=== PATIENT | male | born 1995 | race Asian ===

== ENCOUNTER 2024-09-09 13:49 | Inpatient (IN) | payer OTHER ==
[~2024-09-09] VITALS: Ht 167.6 cm; Wt 82.7 kg
[2024-09-09] MEDS ORDERED: BUPR75TA5 PO (14:34)
[2024-09-09] MEDS ORDERED: SERT-141 PO (14:36)
[2024-09-09] MEDS ORDERED: HYDR50CA2 PO (14:37)
[2024-09-09] MEDS ORDERED: HOME MED LIST COMPLETE! XX SCH (15:05)
[2024-09-09 15:13] LABS: HEMATOCRIT 50.8 % (42.0-52.0); HEMOGLOBIN 17.2 g/dl (13.5-17.5); MEAN CORPUSCULAR HEMOGLOBIN 29.2 pg (27.0-33.0); MEAN CORPUSCULAR HGB CONC 33.9 g/dl (32.0-36.5); MEAN CORPUSCULAR VOLUME 86.2 fl (80.0-96.0); PLATELET COUNT, AUTOMATED 195 10^3/uL (150-450); RED BLOOD COUNT 5.89 10^6/uL (4.30-6.10); WHITE BLOOD COUNT 8.1 10^3/uL (4.0-10.0)
[2024-09-09 15:40] LABS: AMPHETAMINES LEVEL URINE NEGATIVE (NEGATIVE); BARBITURATES URINE NEGATIVE (NEGATIVE)
[2024-09-09 15:41] LABS: BENZODIAZEPINES URINE NEGATIVE (NEGATIVE); CANNABINOIDS URINE NEGATIVE (NEGATIVE); COCAINE METABOLITE URINE NEGATIVE (NEGATIVE); METHADONE URINE NEGATIVE (NEGATIVE); OPIATES URINE NEGATIVE (NEGATIVE); PHENCYCLIDINE URINE NEGATIVE (NEGATIVE)
[2024-09-09 15:43] LABS: ETHYL ALCOHOL (ETHANOL) < 0.003 % (0.000-0.010)
[2024-09-09 15:44] LABS: ALBUMIN 4.1 G/DL (3.2-5.2); ALKALINE PHOSPHATASE 98 U/L (40-129); ALT/SGPT 23 U/L (7.0-40); AST/SGOT 18 U/L (<34); BILIRUBIN,DIRECT 0.3 MG/DL (<0.4); BILIRUBIN,TOTAL 1.1 MG/DL (0.3-1.2); BLOOD UREA NITROGEN 18 MG/DL (9-23); CALCIUM LEVEL 9.8 MG/DL (8.5-10.1); CARBON DIOXIDE LEVEL 29 MMOL/L (20-31); CHLORIDE LEVEL 103 MMOL/L (98-107); CREATININE FOR GFR 0.94 MG/DL (0.70-1.30); GLOMERULAR FILTRATION RATE > 60.0 (>60); GLUCOSE, FASTING 88 MG/DL (60-100); POTASSIUM SERUM 4.3 MMOL/L (3.5-5.1); SALICYLATE LEVEL < 3.0 MG/DL (<30); SODIUM LEVEL 141 MMOL/L (136-145); TOTAL PROTEIN 7.7 G/DL (5.7-8.2)
[2024-09-09 15:47] LABS: THYROID STIMULATING HORMONE 1.005 uIU/ML (0.55-4.78)
[2024-09-09] MEDS ORDERED: IBUPROFEN 400MG TAB PO PRN (18:15)
[2024-09-09] MEDS ORDERED: MAALOX 30 ML SUSP *UDC PO PRN (18:15)
[2024-09-09] MEDS ORDERED: MOM 30ML SUSPENSION UDC PO PRN (18:15)
[2024-09-09] MEDS ORDERED: OLANZapine ORAL DISINTEGRATING TAB 5MG PO PRN (18:15)
[2024-09-09] MEDS: SERTRALINE HCL 50 MG TAB PO SCH (21:00)
[2024-09-09 21:32] VITALS: BP 134/88; TEMP 97.9; O2SAT 100
[2024-09-10 06:52] VITALS: BP 143/97; TEMP 98; O2SAT 100
[2024-09-10] MEDS: buPROPion 75 MG TAB PO SCH (09:01)
[2024-09-10 15:58] VITALS: BP 120/69; TEMP 99.3; O2SAT 100
[2024-09-10] MEDS: traZODone 50 MG TAB PO PRN (22:05)
[2024-09-11 06:46] VITALS: BP 135/71; TEMP 97.8; O2SAT 98
[2024-09-11 14:40] VITALS: BP 151/82; TEMP 97.5; O2SAT 98
[2024-09-11] MEDS: SERTRALINE HCL 50 MG TAB PO SCH (20:55)
[2024-09-12 06:23] VITALS: BP 141/96; TEMP 97.4; O2SAT 98
[2024-09-12 16:03] VITALS: BP 130/81; TEMP 98.4; O2SAT 96
[2024-09-12] MEDS: hydrOXYzine 50 MG TAB PO PRN (20:38)
[2024-09-13 06:27] VITALS: BP 138/68; TEMP 97.4; O2SAT 97
[2024-09-13] MEDS: PILL CUTTER 1 EACH XX PRN (08:25)
[2024-09-13 15:23] VITALS: BP 121/79; TEMP 98.6; O2SAT 97
[2024-09-14 06:44] VITALS: BP 126/80; TEMP 97.2; O2SAT 100
[2024-09-14 16:09] VITALS: BP 140/68; TEMP 97.4; O2SAT 97
[2024-09-15 06:30] VITALS: BP 128/73; TEMP 97.5; O2SAT 100
[2024-09-15 16:46] VITALS: BP 120/71; TEMP 98.3; O2SAT 95
[2024-09-16 06:29] VITALS: BP 122/78; TEMP 97; O2SAT 96
[2024-09-16] MEDS ORDERED: SERT50TA29 PO (08:33)
[2024-09-16] MEDS ORDERED: TRAZ-252 PO (08:33)
== END 2024-09-16 12:00 | disposition home or self-care (01) | DRG 882 ==
LOC: M ED 13:49 → M ED INP 18:12 → M PSY 21:19
PROVIDERS: ADMIT Psychiatry & Neurology Psychiatry; ATTEND Psychiatry & Neurology Psychiatry
DX: F43.10 Post-traumatic stress disorder, unspecified (principal); F90.9 Attention-deficit hyperactivity disorder, unspecified type; F84.0 Autistic disorder; Z63.0 Problems in relationship with spouse or partner; Z62.819 Personal history of unspecified abuse in childhood; Z79.899 Other long term (current) drug therapy; Z88.5 Allergy status to narcotic agent; Z88.6 Allergy status to analgesic agent